=== PATIENT | female | born 1970 | race Caucasian/White ===

== ENCOUNTER 2017-03-18 17:27 | Emergency (ER) | payer MEDICAID ==
[~2017-03-18] VITALS: Ht 167.6 cm; Wt 63.2 kg
[~2017-03-18 17:27] MED LIST: ACET1TAB40 PO; ALPR0.5T PO; IBUP-1542 PO; MED4DP PO; NAPR-260 PO; NAPR-688 PO
[2017-03-18 17:35] VITALS: Ht 167.6 cm; Wt 63.2 kg
[2017-03-18] MEDS ORDERED: SOD CHLORIDE 0.9% 1,000 ML IV STA (19:09)
[2017-03-18] MEDS ORDERED: ONDANSETRON 4 MG INJ IV STA (19:09)
[2017-03-18] MEDS ORDERED: morphine 4 MG/ML VIAL IV STA (19:09)
--- NOTE | 2017-03-18 20:00 | RADRPT ---
PROCEDURE: US abdomen limited right upper quadrant. CLINICAL INDICATION: Abdominal pain TECHNIQUE: Multiple real-time images were acquired of the patient's right upper quadrant of the ab domen utilizing a high resolution transducer. COMPARISON: US ABDOMEN 12/03/2014 (retroperitoneal) FINDINGS: No gallstones are identified within the gallbladder. There is no pericholecystic fluid or gallbladder wall thickening. The common bile duct measures 3.3 mm in maximal dimension. No free fluid is identified. No abnormality is seen in the liver. The pancreas is not well seen due to bowel gas. The right kidney measures 9.4 cm in length and is unremarkable. IMPRESSION: Pancreas not well seen. Otherwise unremarkable examination. RPTAT: HJES .Parag Garg MD, MD Date Time Electronically viewed and signed by .Parag Garg MD, on 03/18/2017 19:59 .S/
[2017-03-18 20:20] LABS: BASOPHILS % 0.2 % (0.0-2.0); EOSINOPHILS # 0.2 10^3/ul (0.0-0.5); HEMATOCRIT 38.4 % (37.0-47.0); HEMOGLOBIN 12.6 g/dl (12.0-16.0); LYMPHOCYTES # 1.4 10^3/ul (0.8-2.9); LYMPHOCYTES % 15.5 % (15.0-51.0); MEAN CORPUSCULAR HEMOGLOBIN 28.4 pg (29.0-33.0); MEAN CORPUSCULAR HGB CONC 32.8 g/dl (32.0-37.0); MEAN CORPUSCULAR VOLUME 86.7 fl (82.0-101.0); MEAN PLATELET VOLUME 12.8 fl (7.4-10.4); MONOCYTE # 0.8 10^3/ul (0.3-0.9); MONOCYTES % 8.9 % (0.0-11.0); NEUTROPHIL # 6.7 10^3/ul (1.6-7.5); NEUTROPHILS % 73.1 % (39.0-77.0); PLATELET COUNT 201 10^3/UL (140-415); RED BLOOD COUNT 4.43 10^6/ul (4.20-5.40); RED CELL DISTRIBUTION WIDTH 13.2 % (11.5-14.5); WHITE BLOOD COUNT 9.2 10^3/ul (4.8-10.8)
[2017-03-18 20:25] LABS: ADD UMIC YES; UR ASCORBIC ACID NEGATIVE (NEGATIVE); UR BACTERIA FEW /HPF (NONE SEEN); UR BILIRUBIN (Dip) NEGATIVE (NEGATIVE); UR BLOOD (Dip) 2+ mg/dL (NEGATIVE); UR CLARITY CLEAR (CLEAR); UR COLOR YELLOW (YELLOW); UR GLUCOSE (Dip) NEGATIVE (NEGATIVE); UR KETONES (Dip) NEGATIVE (NEGATIVE); UR LEUKOCYTE ESTERASE (Dip) NEGATIVE Leu/ul (NEGATIVE); UR NITRITE (Dip) NEGATIVE (NEGATIVE); UR RBC 3 /HPF (0-5); UR SQUAMOUS EPITHELIAL CELL FEW /HPF (FEW); UR TOTAL PROTEIN (Dip) NEGATIVE (NEGATIVE); UR UROBILINOGEN (Dip) NEGATIVE (NEGATIVE)
[2017-03-18 20:43] LABS: ALBUMIN/GLOBULIN RATIO 1.25; CREATININE 0.69 mg/dl (0.44-1.00); POTASSIUM 3.7 mmol/L (3.5-5.1); TOTAL PROTEIN 7.2 g/dl (6.1-8.1)
[2017-03-18] MEDS ORDERED: KETOROLAC 15 MG INJ IV STA (21:50)
[2017-03-18] MEDS ORDERED: ONDA4TAB14 PO (22:55)
[2017-03-18] MEDS ORDERED: HYDR-906 PO (22:55)
--- NOTE | 2017-03-18 23:06 | ERD ---
ER Documentation Chief Complaint Chief Complaint Pt with RUQ AP X 1 day. HPI 47-year-old female presenting with right upper quadrant pain for 1 day. She states the pain is intermittent, worse with eating. Associated with nausea and nonbloody and nonbilious vomiting. She states the pain is burning and aching, leading to her right flank occasionally. No associated fevers, chills, constipation, diarrhea. Denies dysuria or hematuria. ROS All systems reviewed and are negative except as per history of present illness. Medications Home Meds Active Scripts Ondansetron (Ondansetron Odt) 4 Mg Tab.rapdis, 4 MG PO Q6H Y for NAUSEA AND/OR VOMITING, #10 TAB Prov:CARI GILLIAM MD 03/18/17 Hydrocodone/Acetaminophen ([place] 5-325 Tablet) 1 Each Tablet, 1 TAB PO Q6H Y for PAIN, #7 TAB Prov:CARI GILLIAM MD 03/18/17 Ibuprofen* (Motrin*) 600 Mg Tab, 600 MG PO Q6, #20 TAB Prov:WAQAR ROWE PA-C 11/04/15 Naproxen* (Naproxen*) 500 Mg Tablet, 500 MG PO BID Y for PAIN AND/OR INFLAMMATION, #30 TAB Prov:RON BOO MD 07/27/15 Alprazolam* (Xanax*) 0.5 Mg Tab, 0.5 MG PO Q8H Y for MUSCLE SPASMS, #12 TAB Prov:RON BOO MD 07/27/15 Naproxen* (Naprosyn*) 500 Mg Tablet, 500 MG PO BID Y for PAIN AND/OR INFLAMMATION, #30 TAB Prov:MILTON MEYER PA-C 07/04/15 Methylprednisolone* (Medrol* DOSE PACK) 4 Mg/Dose-Pack Tab.ds.pk, 4 MG PO . DIRECTED, #1 PACKET Prov:MILTON MEYER PA-C 07/04/15 Acetaminophen-Codeine* (Acetaminophen-Cod #3*) 300-30 Mg Tab, 1 TAB PO Q4H Y for PAIN LEVEL 6-10, #15 TAB Prov:BRENNA ZEPEDA 09/14/14 Ibuprofen* (Motrin*) 600 Mg Tab, 600 MG PO Q6 for PAIN LEVEL 1-5, #15 TAB Prov:BRENNA ZEPEDA 09/14/14 Allergies Allergies: Coded Allergies: No Known Allergy (Unverified , 04/30/14) PMhx/Soc Medical and Surgical Hx: pt denies Surgical Hx History of Surgery: Yes (appendectomy, right ovary) Anesthesia Reaction: No Hx Neurological Disorder: No Hx Respiratory Disorders: No Hx Cardiac Disorders: No Hx Psychiatric Problems: No Hx Miscellaneous Medical Probl: Yes (artritis ) Hx Alcohol Use: No Hx Substance Use: No Hx Tobacco Use: No Smoking Status: Never smoker FmHx Family History: No diabetes Physical Exam Vitals Vital Signs Date Time Temp Pulse Resp B/P Pulse Ox O2 Delivery O2 Flow Rate FiO2 03/18/17 17:35 98.2 72 20 186/79 97 Physical Exam Const: Well-appearing, nontoxic, mild distress secondary to pain Head: Atraumatic Eyes: Normal Conjunctiva ENT: Normal External Ears, Nose and Mouth. Neck: Full range of motion..~ No meningismus. Resp: Clear to auscultation bilaterally Cardio: Regular rate and rhythm, no murmurs Abd: Soft, right upper quadrant tenderness to deep palpation , non distended. Negative Richards sign. No McBurney's point tenderness. Normal bowel sounds Skin: No petechiae or rashes Back: No midline or flank tenderness Ext: No cyanosis, or edema Neur: Awake and alert Psych: Normal Mood and Affect Result Diagram: 03/18/17 1950 03/18/17 1950 Results 24 hrs Laboratory Tests Test 03/18/17 19:50 03/18/17 20:02 White Blood Count 9.210^3/ul Red Blood Count 4.4310^6/ul Hemoglobin 12.6g/dl Hematocrit 38.4% Mean Corpuscular Volume 86.7fl Mean Corpuscular Hemoglobin 28.4pg Mean Corpuscular Hemoglobin Concent 32.8g/dl Red Cell Distribution Width 13.2% Platelet Count 71105^3/UL Mean Platelet Volume 12.8fl Neutrophils % 73.1% Lymphocytes % 15.5% Monocytes % 8.9% Eosinophils % 2.0% Basophils % 0.2% Nucleated Red Blood Cells % 0.0/100WBC Neutrophils # 6.710^3/ul Lymphocytes # 1.410^3/ul Monocytes # 0.810^3/ul Eosinophils # 0.210^3/ul Basophils # 0.010^3/ul Nucleated Red Blood Cells # 0.010^3/ul Sodium Level 140mmol/L Potassium Level 3.7mmol/L Chloride Level 105mmol/L Carbon Dioxide Level 24mmol/L Anion Gap 15 Blood Urea Nitrogen 19mg/dl Creatinine 0.69mg/dl Glucose Level 113mg/dl Calcium Level 9.0mg/dl Total Bilirubin 0.0mg/dl Direct Bilirubin 0.00mg/dl Indirect Bilirubin 0.0mg/dl Aspartate Amino Transf (AST/SGOT) 33IU/L Alanine Aminotransferase (ALT/SGPT) 25IU/L Alkaline Phosphatase 63IU/L Total Protein 7.2g/dl Albumin 4.0g/dl Globulin 3.20g/dl Albumin/Globulin Ratio 1.25 Lipase 90U/L Serum HCG, Qualitative NEGATIVE Urine Color YELLOW Urine Clarity CLEAR Urine pH 6.0 Urine Specific Davidson 1.030 Urine Ketones NEGATIVEmg/dL Urine Nitrite NEGATIVEmg/dL Urine Bilirubin NEGATIVEmg/dL Urine Urobilinogen NEGATIVEmg/dL Urine Leukocyte Esterase NEGATIVELeu/ul Urine Microscopic RBC 3/HPF Urine Microscopic WBC 2/HPF Urine Squamous Epithelial Cells FEW/HPF Urine Bacteria FEW/HPF Urine Hemoglobin 2+mg/dL Urine Glucose NEGATIVEmg/dL Urine Total Protein NEGATIVEmg/dl Current Medications Medications (Trade) Dose Ordered Sig/Eamon Route PRN Reason Start Time Stop Time Status Last Admin Dose Admin Sodium Chloride (NS) 1,000 ml @ 1,000 mls/hr Q1H STAT IV 03/18/17 19:09 03/18/17 20:08 DC 03/18/17 19:57 Morphine Sulfate (morphine) 4 mg ONCE STAT IV 03/18/17 19:09 03/18/17 19:10 DC 03/18/17 19:56 Ondansetron HCl (Zofran Inj) 4 mg ONCE STAT IV 03/18/17 19:09 03/18/17 19:10 DC 03/18/17 19:56 Ketorolac Tromethamine (Toradol) 15 mg ONCE STAT IV 03/18/17 21:50 03/18/17 21:51 DC Procedures/MDM EMERGENT LABS AND DIAGNOSTIC STUDIES: Lab Results above were reviewed and interpreted by me. CBC is unremarkable CMP is unremarkable Lipase is within normal limits Urinalysis shows evidence of microscopic hematuria, no infection Radiology Results as interpreted by Radiology below were reviewed by Renee Gilliam MD: Ultrasound right upper quadrant does not show any acute abnormalities CT abdomen and pelvis is pending Initial Nursing notes reviewed. Previous Medical Records requested via the Electronic Health Record. EMERGENCY DEPARTMENT COURSE / MEDICAL DECISION MAKING: Patient is presenting to the ER complaining of right upper quadrant pain. Differential includes but is not limited to biliary colic, biliary obstruction, acute cholecystitis, pancreatitis, hepatitis, lower lobe pneumonia, gastritis, colitis, cardiac pathology, aortic dissection, ureterolithiasis, pyelonephritis. Labs were ordered to evaluate for above and were normal. Ultrasound of the abdomen ordered to evaluate gallbladder and showed no acute pathology. CT of the abdomen/pelvis was ordered to evaluate for possible ureterolithiasis and is pending. Patient is feeling better after the IV fluids , antiemetics, and analgesics. I suspect she will be able to go home unless her CT shows acute surgical abdomen, which I doubt it will. Patient will be signed out to the oncoming ED physician, Dr. Bolanos, will follow up on the CT results. Prescription was written for [place] and Zofran. Patient's blood pressure was elevated (>120/80) but appears stable without evidence of hypertensive emergency or urgency. The patient was counseled about the risks of hypertension and urged to pursue outpatient monitoring and therapy within a week with their primary care physician. Departure Diagnosis: Primary Impression: Right upper quadrant abdominal pain Additional Impressions: Right flank pain Nausea and vomiting Vomiting type: unspecified Vomiting Intractability: non-intractable Qualified Code: R11.2 - Non-intractable vomiting with nausea, unspecified vomiting type Condition: Stable Patient Instructions: Abdominal Pain, Flank Pain, Uncertain Cause Referrals: COMMUNITY CLINICS YOU HAVE RECEIVED A MEDICAL SCREENING EXAM AND THE RESULTS INDICATE THAT YOU DO NOT HAVE A CONDITION THAT REQUIRES URGENT TREATMENT IN THE EMERGENCY DEPARTMENT. FURTHER EVALUATION AND TREATMENT OF YOUR CONDITION CAN WAIT UNTIL YOU ARE SEEN IN YOUR DOCTORS OFFICE WITHIN THE NEXT 1-2 DAYS. IT IS YOUR RESPONSIBILITY TO MAKE AN APPOINTMENT FOR FOLOW-UP CARE. IF YOU HAVE A PRIMARY DOCTOR --you should call your primary doctor and schedule an appointment IF YOU DO NOT HAVE A PRIMARY DOCTOR YOU CAN CALL OUR PHYSICIAN REFERRAL HOTLINE AT IF YOU CAN NOT AFFORD TO SEE A PHYSICIAN YOU CAN CHOSE FROM THE FOLLOWING [facility] CLINICS [facility] [address] [facility] [address] [facility] [address] [facility] [address] [facility] [address] [facility] [facility] [address] [facility]. [facility] [address] [facility]. [facility]. [address] Additional Instructions: Mikel gaurav ar con lennon medico primario en 2 fitzgerald. Si estas empeorando, regresa a la jose de emergencias. CARI GILLIAM MD Mar 18, 2017 23:06
--- NOTE | 2017-03-18 23:56 | RADRPT ---
PROCEDURE: CT Abdomen and pelvis without contrast. CLINICAL INDICATION: Abdominal pain. TECHNIQUE: CT scan of the abdomen and pelvis was performed on a multi-detector high-resolution CT scanner. Contiguous axial images were obtained from the lung bases to the ischial tuberosities wit hout intravenous contrast. Coronal and sagittal reformatted images were also obtained. Images were reviewed on the PACS workstation. DICOM images are available. One or more of the following dose reduction techniques were used: - Automated exposure control. - Adjustment of the mA and/or kV according to patient size. - Use of iterative reconstruction technique. Exam CTD/vol = 7.20 mGy. Total exam DLP = 415.60 mGy-cm. COMPARISON: None. FINDINGS: Evaluation of the lung bases demonstrates no pleural or parenchymal disease. Abdomen: The liver is normal in size. There is no focal mass or dilatation of the biliary tree. T he gallbladder is not distended. The spleen, pancreas and bilateral adrenal glands are within torrie l limits. Bilateral kidneys are normal in size with no contour deforming mass identified. There is no radiopaque renal or ureteral calculus identified. There is no hydronephrosis or hydroureter. T here is no retroperitoneal adenopathy. The abdominal aorta is of normal caliber with mild scattered atherosclerotic calcifications. There is no abnormal bowel wall thickening or distension. There is no bowel obstruction or free air . The appendix is not visualized. There are no pericecal inflammatory changes to suggest appendicit is. There is no diverticulosis or diverticulitis. There is no ascites. Pelvis: The bladder is unremarkable. The uterus and adnexa are within normal limits. There is no significant pelvic adenopathy or free fluid. Evaluation of the osseous structures demonstrates no suspicious lytic or blastic lesion. IMPRESSION: No acute abnormality identified within the abdomen and pelvis. Mild vascular calcifications reflective of atherosclerosis. .Bravo Adams MD, MD Date Time Electronically viewed and signed by .Bravo Adams MD, MD on 03/18/2017 23:56 .T/
== END 2017-03-19 00:24 | disposition home or self-care (01) ==
LOC: FTE 17:27
DX: R10.11 Right upper quadrant pain (principal); R11.2 Nausea with vomiting, unspecified
CPT/HCPCS: 36415; 74176; 76705; 80053; 81001; 83690; 84703; 85025; 96374; 96375; J1885; J2270; J2405; J7030; Z7502

== ENCOUNTER 2017-04-06 15:23 | Emergency (ER) | END 2017-04-06 23:50 | disposition home or self-care (01) ==

== ENCOUNTER 2018-01-13 09:46 | Emergency (ER) | END 2018-01-13 13:37 | disposition home or self-care (01) ==

== ENCOUNTER 2018-05-22 09:15 | Emergency (ER) | payer MEDICAID ==
[~2018-05-22] VITALS: Ht 160 cm; Wt 58.1 kg
[~2018-05-22 09:15] MED LIST changes: +HYDR-4011 PO; -NAPR-260 PO; +NAPR-985 PO; +ONDA4TAB14 PO; +RANI150T35 PO
[2018-05-22 09:50] VITALS: BP 160/81; PULSE 82; RESP 18; Ht 160 cm; Wt 58.1 kg
--- NOTE | 2018-05-22 11:26 | ERD ---
ER Documentation Chief Complaint Chief Complaint LEFT LEG BUMP FOR 6 MONTHS; GETTING BIGGER HPI 48-year-old female, presents to the emergency department, complaining of multiple painless nodules on the left lower extremity for more than 6 months. No fever, no chills, no other skin lesions. She has a history of a surgical removal of a lipoma in the left wrist. ROS All systems reviewed and are negative except as per history of present illness. Medications Home Meds Active Scripts Ondansetron (Ondansetron Odt) 4 Mg Tab.rapdis, 4 MG PO Q6H PRN for NAUSEA AND/OR VOMITING, #10 TAB Prov:MADDIE BAXTER DO 04/06/17 Ranitidine Hcl* (Zantac*) 150 Mg Tablet, 150 MG PO BID PRN for EPIGASTRIC PAIN, #30 TAB Prov:GREENMADDIE DO 04/06/17 Ranitidine Hcl* (Zantac*) 150 Mg Tablet, 150 MG PO BID PRN for EPIGASTRIC PAIN, #30 TAB Prov:MADDIE BAXTER DO 04/06/17 Ondansetron (Ondansetron Odt) 4 Mg Tab.rapdis, 4 MG PO Q6H PRN for NAUSEA AND/OR VOMITING, #10 TAB Prov:CARI CACERES MD 03/18/17 Hydrocodone/Acetaminophen ([place] 5-325 Tablet) 1 Each Tablet, 1 TAB PO Q6H PRN for PAIN, #7 TAB Prov:CARI CACERES MD 03/18/17 Ibuprofen* (Motrin*) 600 Mg Tab, 600 MG PO Q6, #20 TAB Prov:WAQAR ROWE PA-C 11/04/15 Naproxen* (Naproxen*) 500 Mg Tablet, 500 MG PO BID PRN for PAIN AND/OR INFLA MMATION, #30 TAB Prov:RON BOO MD 07/27/15 Alprazolam* (Xanax*) 0.5 Mg Tab, 0.5 MG PO Q8H PRN for MUSCLE SPASMS, #12 TAB Prov:RON BOO MD 07/27/15 Naproxen* (Naprosyn*) 500 Mg Tablet, 500 MG PO BID PRN for PAIN AND/OR INFLAMMATION, #30 TAB Prov:MILTON MEYERC 07/04/15 Methylprednisolone* (Medrol* DOSE PACK) 4 Mg/Dose-Pack Tab.ds.pk, 4 MG PO . DIRECTED, #1 PACKET Prov:MILTON MEYER PA-C 07/04/15 Acetaminophen-Codeine* (Acetaminophen-Cod #3*) 300-30 Mg Tab, 1 TAB PO Q4H PRN for PAIN LEVEL 6-10, #15 TAB Prov:CHO,BRENNA 09/14/14 Ibuprofen* (Motrin*) 600 Mg Tab, 600 MG PO Q6 for PAIN LEVEL 1-5, #15 TAB Prov:CHO,BRENNA 09/14/14 Allergies Allergies: Coded Allergies: No Known Allergy (Unverified , 01/13/18) PMhx/Soc History of Surgery: Yes (appendectomy) Anesthesia Reaction: No Hx Neurological Disorder: No Hx Respiratory Disorders: No Hx Cardiac Disorders: No Hx Psychiatric Problems: No Hx Miscellaneous Medical Probl: Yes (arthritis) Hx Alcohol Use: No Hx Substance Use: No Hx Tobacco Use: No FmHx Family History: No diabetes, No coronary disease Physical Exam Vitals Vital Signs Date Temp Pulse Resp B/P (MAP) Pulse Ox O2 O2 Flow FiO2 Time Delivery Rate 05/22/18 98.0 82 18 160/81 95 09:50 (107) Physical Exam Const: No acute distress Head: Atraumatic Eyes: Normal Conjunctiva ENT: Normal External Ears, Nose and Mouth. Neck: Full range of motion. No meningismus. Resp: Clear to auscultation bilaterally Cardio: Regular rate and rhythm, no murmurs Abd: Soft, non tender, non distended. Normal bowel sounds Skin: No petechiae or rashes Back: No midline or flank tenderness Ext: Left lower extremity with 3 nodules located anteriorly in the thigh, less than 1 cm, mobile, rubbery consistency. No erythema, no fluctuance, nontender. Neur: Awake and alert Psych: Normal Mood and Affect Procedures/MDM Vital signs stable. Differential diagnosis considered include but not limited to: Cellulitis, abscess, lipoma, neoplasm. Low suspicion for acute systemic infection. Physical examination and clinical presentation consistent most likely with lipoma. During the ED course the patient remained stable, no new complaints. Results and clinical impression discussed with the patient who agrees with management. The patient is stable to be treated outpatient and will be discharged home. The patient was instructed to follow up with the primary care provider in the next 48h. If symptoms persist, worsen or new symptoms develop, then patient should return to the ED immediately. Instructions explained and given directly by me to the patient in Korean with acknowledgment and demonstrated understanding. Disclaimer: Inadvertent spelling and grammatical errors are likely due to EHR/dictation software use and do not reflect on the overall quality of patient care. Also, please note that the electronic time recorded on this note does not necessarily reflect the actual time of the patient encounter. Departure Diagnosis: Primary Impression: Lipoma of left lower extremity Condition: Stable Additional Instructions: Muchas esthela por [facility] para lennon servicio. Esperamos que en lennon visita a la jose de emergencia lennon problema medico haya sido solucionado y que se sienta mucho mejor. Para estar seguros que lennon mejoria sigue en proceso, le pedimos el favor de hacer gaurav ar de seguimiento medico con lennon doctor primario en los proximos 2-4 fitzgerald. Lleve con usted estos documentos y las medicinas recetadas. Si gerri sintomas empeoran, NO SE ESPERE, por favor regrese a jose de emergencia INMEDIATAMENTE. En reinier que usted no tenga un mdico de atencin primaria: Llame al mdico o clnica comunitaria de referencia que aparece abajo aaron las horas de consultorio para hacer gaurav ar para que le vean. CLINICAS: [facility] [phone] [address] [facility] [phone] [facility] [phone] [address] [place] [id number] [phone] [place] [id number] [phone] [facility] [phone] MD May 22, 2018 11:26
== END 2018-05-22 11:45 | disposition home or self-care (01) ==
LOC: FTE 09:15
DX: D17.24 Benign lipomatous neoplasm of skin and subcutaneous tissue of left leg (principal)
CPT/HCPCS: 99282